=== PATIENT | male | born 1955 | race Caucasian/White ===

== ENCOUNTER 2021-09-20 08:01 | Outpatient (CLI) | payer OTHER ==
[2021-09-20] MEDS ORDERED: Iopamidol 370 76% 100 ML VIAL ONE (09:21)
== END 2021-09-20 08:02 | disposition home or self-care (01) ==
LOC: CT 08:01
PROVIDERS: ATTEND Student in an Organized Health Care Education/Training Program
DX: E05.20 Thyrotoxicosis with toxic multinodular goiter without thyrotoxic crisis or storm (principal)
CPT/HCPCS: 70491; 82565; Q9967

== ENCOUNTER 2021-12-16 09:47 | Outpatient (CLI) | payer MEDICARE ==
[2021-12-16 13:18] LABS: Hemoglobin 16.1 g/dL (13.5-17.5); Mean Corpuscular HGB CONC 35.3 g/dL (32.0-36.0); Mean Corpuscular Hemoglobin 33.8 pg (27.0-33.0); Mean Corpuscular Volume 95.8 fl (81.2-95.1); Mean Platelet Volume 10.9 fl (7.4-10.4); Platelet Count 227 10x3/uL (150-450); RBC Distribution Width 11.9 % (11.5-14.5); Red Blood Cell (RBC) Count 4.76 10x6/uL (4.32-5.72); White Blood Cell (WBC) Count 7.3 10x3/uL (3.5-10.5)
[2021-12-16 13:19] LABS: Anion Gap 17 mmol/L (10-20); BUN (Urea Nitrogen) 19 mg/dL (8.4-25.7); Calc. Creatinine Clearance 0 mL/min (70-130); Calcium 9.7 mg/dL (7.8-10.44); Carbon Dioxide 23 mmol/L (23-31); Chloride 105 mmol/L (98-107); Estimated GFR 69; Glucose 144 mg/dL (80-115); Potassium 4.8 mmol/L (3.5-5.1); Sodium 140 mmol/L (136-145)
== END 2021-12-16 09:48 | disposition home or self-care (01) ==
LOC: LABBT 09:47
PROVIDERS: ATTEND Student in an Organized Health Care Education/Training Program
DX: Z01.818 Encounter for other preprocedural examination (principal); H90.5 Unspecified sensorineural hearing loss; R09.82 Postnasal drip; E05.20 Thyrotoxicosis with toxic multinodular goiter without thyrotoxic crisis or storm; R22.1 Localized swelling, mass and lump, neck; R13.10 Dysphagia, unspecified
CPT/HCPCS: 80048; 85027; 93005; 93010

== ENCOUNTER 2021-12-19 09:47 | Inpatient (IN) | payer MEDICARE ==
[2021-12-18 12:42] VITALS: BMI 31.8
[2021-12-19] MEDS ORDERED: Lidocaine 1% (PF) 30 ML VIAL ONE (11:44)
[2021-12-19] MEDS ORDERED: fentaNYL PF 100 MCG/2 ML SYRINGE ONE (11:53)
[2021-12-19] MEDS ORDERED: PHENYLEPHRINE-NS 100 MCG/ML 10 ML SYRINGE ONE (12:15)
[2021-12-19] MEDS ORDERED: Ondansetron PF 4 MG/2 ML Vial ONE (12:15)
[2021-12-19] MEDS ORDERED: ePHEDrine 50 MG/ML VIAL ONE (12:15)
[2021-12-19] MEDS ORDERED: Dexamethasone 20 MG/5 ML VIAL ONE (12:15)
[2021-12-19] MEDS ORDERED: PROPOFOL 200 MG/20 ML VIAL ONE (12:15)
[2021-12-19] MEDS ORDERED: Rocuronium Bromide 10 MG/ML (10ML VIAL) ONE (12:15)
[2021-12-19 12:17] LABS: SARS-CoV-2 NAA Rapid Test Not Detected (NotDetected)
[2021-12-19] MEDS ORDERED: SUGAMMADEX SODIUM 200 MG/2 ML VIAL ONE (16:46)
[2021-12-19] MEDS ORDERED: CEFAZOLIN 1 GM VIAL ONE (16:57)
[2021-12-19] MEDS ORDERED: Promethazine HCl 25 MG/ML VIAL IVPB PRN (17:28)
[2021-12-19] MEDS ORDERED: Ondansetron HCl/PF 4 MG/2 ML Vial IVP PRN (17:28)
[2021-12-19] MEDS ORDERED: Promethazine HCl 25 MG/ML VIAL IM PRN (17:28)
[2021-12-19] MEDS ORDERED: HYDROcodone/Acetaminophen 5/325 mg Tablet PO PRN (17:43)
[2021-12-19] MEDS ORDERED: Ondansetron PF 4 MG/2 ML Vial IVP PRN (17:44)
[2021-12-19] MEDS ORDERED: Promethazine HCl 25 MG/ML VIAL ONE (17:58)
[2021-12-19] MEDS ORDERED: FENTANYL 50 MCG/ML 1 ML VIAL ONE (18:01)
[2021-12-19] MEDS: Lactated Ringer's 1,000 ML IV SCH (18:38)
[2021-12-19] MEDS: Calcium Carbonate 500 MG ChewTAB PO SCH (20:52)
[2021-12-19] MEDS: HYDROcodone/Acetaminophen 5/325 mg Tablet PO PRN (20:53)
[2021-12-19] MEDS: Calcitriol 0.25 MCG CAP PO SCH (20:54)
[2021-12-19] MEDS: Docusate 100 MG CAP PO SCH (20:54)
[2021-12-20] MEDS: HYDROcodone/Acetaminophen 5/325 mg Tablet PO PRN ×2 (00:58→06:00)
[2021-12-20] MEDS: Lactated Ringer's 1,000 ML IV SCH (07:18)
[2021-12-20] MEDS: Docusate 100 MG CAP PO SCH (08:40)
[2021-12-20] MEDS: Calcitriol 0.25 MCG CAP PO SCH (08:42)
[2021-12-20] MEDS: Calcium Carbonate 500 MG ChewTAB PO SCH (08:44)
[2021-12-20 11:48] VITALS: BP 161/82; TEMP 98
== END 2021-12-20 12:25 | disposition home or self-care (01) | DRG 627 ==
LOC: SDC 09:47 → SURG A 18:26
PROVIDERS: ADMIT Student in an Organized Health Care Education/Training Program; ATTEND Student in an Organized Health Care Education/Training Program
PROC: 0GTK0ZZ Resection of Thyroid Gland, Open Approach (ICD-10-PCS; principal; 2021-12-19)
PROC: 0GTH0ZZ Resection of Right Thyroid Gland Lobe, Open Approach (ICD-10-PCS; 2021-12-19)
PROC: 0GTG0ZZ Resection of Left Thyroid Gland Lobe, Open Approach (ICD-10-PCS; 2021-12-19)
PROC: 0GTJ0ZZ Resection of Thyroid Gland Isthmus, Open Approach (ICD-10-PCS; 2021-12-19)
PROC: 0GSQ0ZZ Reposition Multiple Parathyroid Glands, Open Approach (ICD-10-PCS; 2021-12-19)
DX: E05.20 Thyrotoxicosis with toxic multinodular goiter without thyrotoxic crisis or storm (principal); Z20.822 Contact with and (suspected) exposure to COVID-19; R13.10 Dysphagia, unspecified; I10 Essential (primary) hypertension; E78.5 Hyperlipidemia, unspecified; F32.A Depression, unspecified; I25.10 Atherosclerotic heart disease of native coronary artery without angina pectoris; E11.9 Type 2 diabetes mellitus without complications; H90.5 Unspecified sensorineural hearing loss; Z95.5 Presence of coronary angioplasty implant and graft; Z95.1 Presence of aortocoronary bypass graft; Z79.899 Other long term (current) drug therapy; Z79.82 Long term (current) use of aspirin; Z79.84 Long term (current) use of oral hypoglycemic drugs
CPT/HCPCS: 36415; 36416; 82310; 83970; 88305; 88307; 88331; C1713; C1776; C1889; J0690; J1100; J2001; J2405; J2550; J2704; J3010; J3490; U0002

== ENCOUNTER 2021-12-20 19:51 | Emergency (ER) | payer MEDICARE | END 2021-12-20 21:52 | disposition home or self-care (01) | LOC: ERS 19:51 | DX: T85.698A Other mechanical complication of other specified internal prosthetic devices, implants and grafts, initial encounter (principal); E11.9 Type 2 diabetes mellitus without complications | CPT/HCPCS: 99283 ==

== ENCOUNTER 2021-12-22 13:35 | Emergency (ER) | payer MEDICARE ==
[2021-12-22] MEDS ORDERED: Ondansetron PF 4 MG/2 ML Vial ONE (14:31)
[2021-12-22] MEDS ORDERED: Lorazepam 2 MG/ML VIAL ONE ×2 (14:40→14:55)
[2021-12-22 14:41] LABS: #Basophils 0.1 thou/uL (0.0-0.2); #Eosinphils 0.1 thou/uL (0.0-0.7); #Lymphocytes 2.2 thou/uL (1.20-3.40); #Monocytes 0.7 thou/uL (0.11-0.59); #Neutrophils 6.3 thou/uL (1.40-6.50); %Basophils 0.6 % (0.0-1.0); %Eosinophils 0.9 % (0.0-10.0); %Lymphocytes 23.7 % (21.0-51.0); %Monocytes 7.7 % (0.0-10.0); %Neutrophils 67.1 % (42.0-75.0); Hemoglobin 17.8 g/dL (14.0-18.0); Mean Corpuscular Hemoglobin 36.1 pg (27.0-31.0); Mean Platelet Volume 7.6 fL (7.4-10.4); Platelet Count 217 10x3/uL (130-400); RBC Distribution Width 11.2 % (11.5-14.5); Red Blood Cell (RBC) Count 4.93 mill/uL (4.70-6.10); White Blood Cell (WBC) Count 9.4 10x3/uL (4.8-10.8)
[2021-12-22 14:59] LABS: ALT (SGPT) 25 U/L (8-55); AST (SGOT) 22 U/L (5-34); Alkaline Phosphatase 64 U/L (40-110); Anion Gap 17 mmol/L (10-20); BUN (Urea Nitrogen) 15 mg/dL (8.4-25.7); Bilirubin, Total 1.6 mg/dL (0.2-1.2); Calc. Creatinine Clearance 0 mL/min (70-130); Calcium 10.7 mg/dL (7.8-10.44); Carbon Dioxide 22 mmol/L (23-31); Chloride 100 mmol/L (98-107); Estimated GFR 64; Globulin 4.1 g/dL (2.4-3.5); Glucose 164 mg/dL (80-115); Lipase 53 U/L (8-78); Potassium 3.8 mmol/L (3.5-5.1); Protein, Total 9.1 g/dL (5.8-8.1); Sodium 135 mmol/L (136-145)
== END 2021-12-22 17:39 | disposition home or self-care (01) ==
LOC: ERS 13:35
DX: R11.2 Nausea with vomiting, unspecified (principal); F41.9 Anxiety disorder, unspecified; E89.0 Postprocedural hypothyroidism; I25.10 Atherosclerotic heart disease of native coronary artery without angina pectoris; E11.9 Type 2 diabetes mellitus without complications; Z90.89 Acquired absence of other organs
CPT/HCPCS: 74176; 80053; 83690; 84443; 85025; 93005; 96361; 96374; 96375; J2060; J2405